=== PATIENT | male | born 1955 | race Caucasian/White ===

== ENCOUNTER → 2020-07-27 | Outpatient (CLI) | payer BC ==
[~2020-07-27] MED LIST: ASPI-171 PO; ATOR40TA59 PO; PANT40TA6 PO; TEST200V3 IM
== END ==
LOC: LAB 09:10
PROVIDERS: ATTEND Nurse Anesthetist, Certified Registered
DX: Z01.812 Encounter for preprocedural laboratory examination (principal); Z20.828 Contact with and (suspected) exposure to other viral communicable diseases; K21.9 Gastro-esophageal reflux disease without esophagitis
CPT/HCPCS: U0003

== ENCOUNTER → 2020-07-31 | Day surgery (SDC) | payer BC ==
[~2020-07-31] MED LIST changes: +IPRATRPIUM/ALBUTEROL 0.5/2.5MG 3 ML NEBU. NEB PRN; +IV RINGERS SOLUTION,LACTATED 1,000 ML IV SCH; +LIDOCAINE 2% PF 5 ML VIAL. ONE; +MIDAZOLAM HCL PF 2 MG/2 ML VIAL. IV ONE; +ONDANSETRON PF 4 MG/2 ML VIAL. IV PRN; +PROPOFOL 10,000 MCG/ML (20ML) VIAL IV ONE
[2020-07-31 11:27] VITALS: BP 113/76
--- NOTE | 2020-08-03 15:07 | PATHOLOGY ---
[facility] Accession Number: [id number] . 01 Material submitted: . PART A: stomach - GASTRIC POLYP HOT SNARE PART B: stomach - GASTRIC BIOPSY . 01 Clinical history: . DYSPHAGIA . 02 Diagnosis: A. Gastric biopsy, gastric polyp: - Fundic gland polyp. . B. Gastric biopsies: - Superficial congestion and slight chronic inflammation. (JPM:[facility] 08/03/2020) [facility] 08/03/2020 0924 Local . 02 Comment: Sections of the gastric polyp biopsy reveal a fundic gland polyp. There are no adenomatous changes or evidence of malignancy. . Sections of the gastric biopsy show superficial congestion and slight chronic inflammation. A properly controlled immunoperoxidase for Helicobacter is negative for Helicobacter organisms. (JP:[facility] 08/03/2020) . Special stain performed: Immunoperoxidase stain for Helicobacter on B1. . 02 Electronically signed: . Matthew Pritchard MD, Pathologist NPI- [id number] . 01 Gross description: . A. Received in formalin labeled "Matthew Kowalski, gastric polyp hot snare" is a fragment of montaño-brown soft tissue measuring 0.7 x 0.6 x 0.4 cm. The margin is inked and the specimen is bisected and submitted entirely in A1. . B. Received in formalin labeled "Dex, Matthew, gastric BX" are two montaño-brown soft tissue fragments measuring in aggregate 0.4 x 0.4 x 0.1 cm. The specimen is submitted entirely in B1. ([place]; 08/01/2020) SY/[facility] 08/01/2020 1809 Local . 02 Pathologist provided ICD-10: K31.7, K31.89, K29.50 . 02 CPT . 235915, [id number], [id number] Specimen Comment: A courtesy copy of this report has been sent to [phone] Specimen Comment: [id number] Specimen Comment: Report sent to / DR LAWRENCE Performed at: 01 [facility] [address] [id number] MD Jean Claude Mary MD Phone: [phone] Performed at: 02 [facility] [address] [place], [place] [id number] MD Matthew Pritchard MD Phone: [phone]
== END | disposition home or self-care (01) ==
LOC: SURG 09:31
PROVIDERS: ATTEND Emergency Medicine
DX: R13.10 Dysphagia, unspecified (principal); K44.9 Diaphragmatic hernia without obstruction or gangrene; K31.7 Polyp of stomach and duodenum; K22.2 Esophageal obstruction; K29.50 Unspecified chronic gastritis without bleeding; K21.9 Gastro-esophageal reflux disease without esophagitis; K31.89 Other diseases of stomach and duodenum; Z79.82 Long term (current) use of aspirin; Z79.899 Other long term (current) drug therapy
CPT/HCPCS: 43239; 43251; 43450; 88305; 88342; J2001; J2704; J7120